=== PATIENT | male | born 1955 | race Two or more races ===

== ENCOUNTER → 2019-12-13 | Outpatient (CLI) | payer BC ==
[2019-12-13 10:33] LABS: BASOPHILS % 0.4 % (0.0-2.0); EOSINOPHILS % 0.8 % (0.0-5.0); HEMATOCRIT. 39.1 % (42.0-52.0); HEMOGLOBIN. 13.7 g/dL (14.0-18.0); LYMPHOCYTES % 30.4 % (20.0-50.0); MEAN CORPUSCULAR HEMOGLOBIN 31.1 pg (28.0-32.0); MEAN CORPUSCULAR VOLUME 88.6 fL (80.0-94.0); MEAN PLATELET VOLUME 8.8 fl (7.4-10.4); MONOCYTES % 5.4 % (2.0-8.0); PLATELET 193 x1000/uL (130-400); RED BLOOD CELL COUNT 4.42 mill/uL (4.7-6.1); RED CELL DISTRIBUTION WIDTH 13.7 % (11.6-14.6)
[2019-12-13 10:41] LABS: CHLORIDE 107 mEq/L (98-107)
[2019-12-13 10:47] LABS: LDL CHOLESTEROL 54 mg/dL (5-100)
[2019-12-13 10:48] LABS: HDL CHOLESTEROL 33 mg/dL (40-59)
[2019-12-13 10:49] LABS: T4 FREE 0.87 ng/dL (0.76-1.46)
== END | disposition home or self-care (01) ==
LOC: LAB 09:50
PROVIDERS: ATTEND Internal Medicine
DX: E11.9 Type 2 diabetes mellitus without complications (principal); I10 Essential (primary) hypertension; E78.5 Hyperlipidemia, unspecified; Z00.00 Encounter for general adult medical examination without abnormal findings; Z13.220 Encounter for screening for lipoid disorders; Z13.1 Encounter for screening for diabetes mellitus
CPT/HCPCS: 36415; 80053; 80061; 83036; 84439; 84443; 85025

== ENCOUNTER 2021-10-28 10:32 | Inpatient (IN) | payer BC ==
[~2021-10-28] VITALS: Ht 167.6 cm; Wt 87.1 kg
[2021-10-28] MEDS ORDERED: MORPHINE SULFATE 4 MG/ML CPJ (NOT FOR IM USE) IV STA (11:34)
[2021-10-28] MEDS ORDERED: ONDANSETRON HCL 4MG/2ML INJ IV STA (11:34)
[2021-10-28] MEDS ORDERED: NITROGLYCERIN OINT 1GM/INCH UDPKT TD ONE (11:45)
[2021-10-28] MEDS ORDERED: ASPIRIN 81MG TABLET PO ONE (11:45)
[2021-10-28 12:07] LABS: BASOPHILS % 0.7 % (0.0-2.0); EOSINOPHILS % 1.1 % (0.0-5.0); HEMATOCRIT. 38.4 % (42.0-52.0); HEMOGLOBIN. 13.3 g/dL (14.0-18.0); LYMPHOCYTES % 32.7 % (20.0-50.0); MEAN CORPUSCULAR HEMOGLOBIN 31.2 pg (28.0-32.0); MEAN CORPUSCULAR VOLUME 90.5 fL (80.0-94.0); MEAN PLATELET VOLUME 8.6 fl (7.4-10.4); NEUTROPHILS % 60.5 % (40.0-76.0); PLATELET 225 x1000/uL (130-400); RED BLOOD CELL COUNT 4.25 mill/uL (4.7-6.1); RED CELL DISTRIBUTION WIDTH 14.2 % (11.6-14.6)
[2021-10-28 12:50] LABS: CHLORIDE 105 mEq/L (98-107)
[2021-10-28 13:00] LABS: ETHANOL BLOOD < 10 mg/dL
[2021-10-28 20:05] LABS: *AMPHETAMINES SCREEN URINE NEGATIVE (NEGATIVE); *BARBITURATES SCREEN URINE NEGATIVE (NEGATIVE); *BENZODIAZEPINES SCREEN URINE NEGATIVE (NEGATIVE); *COCAINE SCREEN URINE NEGATIVE (NEGATIVE); CANNABINOID URINE SCREEN NEGATIVE (NEGATIVE); METHADONE URINE SCREEN NEGATIVE (NEGATIVE); OPIATES URINE SCREEN PRESUMTIVE POSITIVE (NEGATIVE); PHENCYCLIDINE URINE SCREEN NEGATIVE (NEGATIVE)
[2021-10-28] MEDS ORDERED: METOPROLOL TARTRATE 25MG TABLET PO SCH (21:00)
[2021-10-28] MEDS ORDERED: HYDRALAZINE 20MG/ML VIAL IV PRN (21:30)
[2021-10-28 22:45] VITALS: BP 192/92
[2021-10-28] MEDS ORDERED: METO-396 MT (22:55)
[2021-10-28] MEDS ORDERED: METF-416 MT (22:55)
[2021-10-28] MEDS ORDERED: OMEP40CA20 MT (22:55)
[2021-10-28] MEDS ORDERED: ATOR20TA65 MT (22:55)
[2021-10-28] MEDS: BLOOD SUGAR DIAGNOSTIC STRIP TEST SCH (23:00)
[2021-10-28] MEDS ORDERED: DEXTROSE 50% WATER 50ML SYRINGE IV PRN (23:00)
[2021-10-28 23:15] VITALS: BP 150/85
[2021-10-28 23:22] VITALS: BP 150/85
[2021-10-28] MEDS: HYDROCODONE/ACETAMINOPHEN 5/325MG TABLET PO PRN (23:23)
[2021-10-28] MEDS: AMLODIPINE 5MG TABLET PO SCH (23:23)
[2021-10-28] MEDS: INSULIN LISPRO 100 UNITS/ML SUBCUT SCH (23:29)
[2021-10-29] VITALS (18 sets, daily range): BP systolic 97–130; BP diastolic 58–76
[2021-10-29] MEDS: BLOOD SUGAR DIAGNOSTIC STRIP TEST SCH ×4 (06:49→20:59)
[2021-10-29] MEDS: OMEPRAZOLE 20MG CAPSULE EXTENDED RELEASE PO SCH (07:43)
[2021-10-29] MEDS: INSULIN LISPRO 100 UNITS/ML SUBCUT SCH ×4 (07:44→21:07)
[2021-10-29] MEDS: METFORMIN HCL 500MG TABLET PO SCH ×2 (08:21→17:48)
[2021-10-29] MEDS ORDERED: NITROGLYCERIN 50MCG/ML 10ML VIAL (CATH LAB) IV ONE (08:47)
[2021-10-29] MEDS ORDERED: NICARDIPINE 100MCG/ML 10ML VIAL (CATH LAB) IV ONE (08:47)
[2021-10-29] MEDS ORDERED: MEDICATION NOT ON FORMULARY EA (Metformin Hcl 1 TAB) MT SCH (09:00)
[2021-10-29] MEDS ORDERED: MEDICATION NOT ON FORMULARY EA (Omeprazole 1 CAP) MT SCH (09:00)
[2021-10-29] MEDS: ASPIRIN 81MG TABLET PO SCH (09:02)
[2021-10-29] MEDS: AMLODIPINE 5MG TABLET PO SCH (09:03)
[2021-10-29] MEDS: METOPROLOL TARTRATE 50MG TABLET PO SCH ×2 (09:03→21:00)
[2021-10-29] MEDS: ENOXAPARIN 40MG/0.4ML SYR SUBCUT SCH (09:04)
[2021-10-29] MEDS ORDERED: VERAPAMIL HCL 2.5 MG/1 ML 2ML VIAL IV ONE (13:33)
[2021-10-29] MEDS ORDERED: HEPARIN 1000 UNITS/ML 10ML ONE ×2 (13:33→14:47)
[2021-10-29] MEDS ORDERED: LIDOCAINE HCL/PF 1% 10 MG/ML 5ML VIAL ONE (13:37)
[2021-10-29] MEDS ORDERED: IODIXANOL 320MG/ML 100 ML BOTTLE IV ONE ×2 (13:37→14:54)
[2021-10-29] MEDS ORDERED: FENTANYL CITRATE/PF 50MCG/ML 2ML VIAL ONE (13:53)
[2021-10-29] MEDS ORDERED: MIDAZOLAM HCL 2 MG/2 ML VIAL ONE (13:54)
[2021-10-29] MEDS ORDERED: DIPHENHYDRAMINE 50MG/ML VIAL ONE (14:16)
[2021-10-29] MEDS ORDERED: CLOPIDOGREL 75MG TABLET ONE (15:07)
[2021-10-29] MEDS ORDERED: ASPIRIN 325MG TABLET ONE (15:07)
[2021-10-29] MEDS ORDERED: ATROPINE SULFATE 1MG/10ML SYR IV PRN (15:30)
[2021-10-29] MEDS ORDERED: NALOXONE HCL 0.4MG/ML VIAL IV PRN (16:00)
[2021-10-29] MEDS: HYDROCODONE/ACETAMINOPHEN 5/325MG TABLET PO PRN (16:38)
[2021-10-29] MEDS ORDERED: SODIUM CHLORIDE 0.45% 500 ML IV ONE (18:00)
[2021-10-29] MEDS ORDERED: ATORVASTATIN CALCIUM 20MG TABLET PO SCH (21:00)
[2021-10-29 22:36] LABS: CHLORIDE 107 mEq/L (98-107)
[2021-10-30] VITALS (10 sets, daily range): BP systolic 109–136; BP diastolic 60–80
[2021-10-30] MEDS: OMEPRAZOLE 20MG CAPSULE EXTENDED RELEASE PO SCH (06:39)
[2021-10-30] MEDS: BLOOD SUGAR DIAGNOSTIC STRIP TEST SCH (06:41)
[2021-10-30 06:59] LABS: BASOPHILS % 0.4 % (0.0-2.0); EOSINOPHILS % 0.7 % (0.0-5.0); HEMATOCRIT. 36.2 % (42.0-52.0); HEMOGLOBIN. 12.6 g/dL (14.0-18.0); LYMPHOCYTES % 28.1 % (20.0-50.0); MEAN CORPUSCULAR HEMOGLOBIN 31.7 pg (28.0-32.0); MEAN CORPUSCULAR VOLUME 91.1 fL (80.0-94.0); MONOCYTES % 5.3 % (2.0-8.0); NEUTROPHILS % 65.5 % (40.0-76.0); PLATELET 202 x1000/uL (130-400); RED BLOOD CELL COUNT 3.97 mill/uL (4.7-6.1); RED CELL DISTRIBUTION WIDTH 14.3 % (11.6-14.6)
[2021-10-30 07:07] LABS: CHLORIDE 106 mEq/L (98-107)
[2021-10-30] MEDS: METOPROLOL TARTRATE 50MG TABLET PO SCH (08:25)
[2021-10-30] MEDS: ASPIRIN 81MG TABLET PO SCH (08:35)
[2021-10-30] MEDS: INSULIN LISPRO 100 UNITS/ML SUBCUT SCH (08:35)
[2021-10-30] MEDS: AMLODIPINE 5MG TABLET PO SCH (08:35)
[2021-10-30] MEDS: METFORMIN HCL 500MG TABLET PO SCH (08:35)
[2021-10-30] MEDS: ENOXAPARIN 40MG/0.4ML SYR SUBCUT SCH (08:36)
[2021-10-30] MEDS ORDERED: CLOPIDOGREL 75MG TABLET PO SCH (09:00)
[2021-10-30] MEDS ORDERED: ASPI-1160 PO (09:30)
[2021-10-30] MEDS ORDERED: CLOP75TA15 PO (09:30)
[2021-10-30] MEDS ORDERED: INSU100I28 SQ (11:28)
== END 2021-10-30 11:30 | disposition home or self-care (01) | DRG 247 ==
LOC: ER 10:32 → 7WST 13:43 → EDBEDREQTM 13:44 → EDBEDREQ 13:44 → ENRESERV 19:47 → 5EST 10-29 15:46
PROVIDERS: ADMIT Internal Medicine; ATTEND Internal Medicine
PROC: 027135Z Dilation of Coronary Artery, Two Arteries with Two Drug-eluting Intraluminal Devices, Percutaneous Approach (ICD-10-PCS; principal; 2021-10-29)
PROC: 4A023N7 Measurement of Cardiac Sampling and Pressure, Left Heart, Percutaneous Approach (ICD-10-PCS; 2021-10-29)
PROC: B211YZZ Fluoroscopy of Multiple Coronary Arteries using Other Contrast (ICD-10-PCS; 2021-10-29)
DX: I25.110 Atherosclerotic heart disease of native coronary artery with unstable angina pectoris (principal); I10 Essential (primary) hypertension; E66.9 Obesity, unspecified; I16.0 Hypertensive urgency; Z20.822 Contact with and (suspected) exposure to COVID-19; E78.5 Hyperlipidemia, unspecified; E11.65 Type 2 diabetes mellitus with hyperglycemia; I25.2 Old myocardial infarction; Z86.73 Personal history of transient ischemic attack (TIA), and cerebral infarction without residual deficits; Z82.49 Family history of ischemic heart disease and other diseases of the circulatory system; Z68.31 Body mass index [BMI] 31.0-31.9, adult
CPT/HCPCS: 36415; 71045; 80048; 80053; 80305; 80320; 82962; 83036; 83735; 83880; 84484; 85025; 87426; 92928; 93005; 93306; 93458; 99285; C1769; C1874; C1887; C1893; C9803; J0360; J1200; J1644; J1650; J1815; J2250; J2270; J2405; J3010; J3490; Q9967; G0480